=== PATIENT | female | born 1950 | race African-American/Black ===

== ENCOUNTER 2024-12-21 10:24 | Emergency (ER) | payer BC, MEDICARE ==
[~2024-12-21] VITALS: Ht 160 cm; Wt 79.5 kg
[2024-12-21 10:25] VITALS: O2SAT 99
[2024-12-21 10:26] VITALS: BP 146/81; PULSE 102; RESP 18; TEMP 36.9; O2SAT 100
[2024-12-21] MEDS: MAGNESIUM/ALUMINUM HYDROXIDE/SIMETHICONE 30ML UDC PO ONE (11:06)
== END 2024-12-21 12:43 | disposition home or self-care (01) ==
LOC: ER 10:24
DX: R09.89 Other specified symptoms and signs involving the circulatory and respiratory systems (principal); I11.0 Hypertensive heart disease with heart failure; I50.9 Heart failure, unspecified; Z98.890 Other specified postprocedural states; Z79.899 Other long term (current) drug therapy
CPT/HCPCS: 71045; 99283